=== PATIENT | female | born 1965 | race Caucasian/White ===

== ENCOUNTER 2024-05-08 20:39 | Outpatient (REF) | payer SELFPAY ==
[2024-05-08 21:34] LABS: HCT 46.2 % (36.0-46.0); HGB 14.9 g/dL (11.2-15.7); MCH 29.6 pg (27.0-33.0); MCHC 32.3 % (32.0-36.0); MCV 92 fL (80-95); MPV 11.3 fL (8.0-11.0); Platelet Count 279 10^3/uL (130-400); RBC 5.03 10^6/uL (3.93-5.22); RDW 12.9 % (11.7-14.6); RDW-SD 43.2 fL; WBC 7.04 10^3/uL (4.4-10.8)
[2024-05-08 21:57] LABS: ALT 24 U/L (14-59); AST 17 U/L (15-37); Albumin 3.7 g/dL (3.4-5.0); Alkaline Phosphatase 97 U/L (46-116); Anion Gap 7.6 mmol/L (3-11); BUN 20 mg/dL (7-18); Bilirubin, Total 0.33 mg/dL (0.2-1.0); CO2 28.4 mmol/L (21.0-32.0); Calcium 10.8 mg/dL (8.5-10.1); Chloride 104 mmol/L (98-107); FREE T4 0.98 ng/dL (0.76-1.46); Glucose 91 mg/dL (74-106); Potassium 4.5 mmol/L (3.5-5.1); Sodium 140 mmol/L (136-145); TSH 2.34 uIU/Ml (0.36-3.74); Total Protein 8.3 g/dL (6.4-8.2)
[2024-05-08 22:00] LABS: Hemoglobin A1C 5.8 % (<5.7)
[2024-05-08 22:15] LABS: Calculated LDL 195 mg/dL (<100); Cholesterol 283 mg/dL (<200); HDL Cholesterol 65 mg/dL (40-60); Triglyceride 117 mg/dL (<150)
== END 2024-05-08 20:40 | disposition home or self-care (01) ==
LOC: NCHCN 20:39
PROVIDERS: Visit Provider Family Medicine
DX: E03.9 Hypothyroidism, unspecified (principal); E78.5 Hyperlipidemia, unspecified; R53.83 Other fatigue
CPT/HCPCS: 80053; 80061; 85027; 83036; 84439; 84443

== ENCOUNTER 2024-06-09 15:04 | Outpatient (REF) | payer OTHER, SELFPAY ==
[2024-06-09 17:51] LABS: Vitamin D 25 Total 23.2 ng/mL (30-100)
[2024-06-12 10:57] LABS: Parathyroid Hormone,Intact 38 pg/mL (19-88)
== END 2024-06-09 15:05 | disposition home or self-care (01) ==
LOC: NCHCN 15:04
PROVIDERS: PCP Family Medicine; Visit Provider Family Medicine
DX: M19.09 Primary osteoarthritis, other specified site (principal)
CPT/HCPCS: 82306; 83970

== ENCOUNTER 2024-11-13 15:08 | Outpatient (REF) | payer BC, SELFPAY ==
--- NOTE | 2024-11-13 09:00 | PAPFT_PTH ---
PATIENT: Dilma Daniel [id number] AGE/SX: 59/F ROOM: RE11/13/[address]: Kiara Maldonado : 1965 BED: DIS: 11/13/2024 SPEC #: [id number] RECD: 11/14/24 12:51 STATUS: UMA REGriselda #: [id number] FEDERICO: 11/13/24 09:[address]: Kiara Maldonado DEPT: [facility] Cytology RECD BY: Amber Graves Tissues: 1 - CX/ENDOCX FOR PAP SMEARS Procedures: PAP THIN PREP/[facility] Screening HPV DNA PROBE Comments: [id number] (HPV 16 & 18/45)
[2024-11-13 21:38] LABS: Anion Gap 5.1 mmol/L (3-11); BUN 17 mg/dL (7-18); CO2 29.9 mmol/L (21.0-32.0); CREATININE 1.1 mg/dL (0.55-1.02); Calcium 10.6 mg/dL (8.5-10.1); Calculated LDL 90 mg/dL (<100); Chloride 108 mmol/L (98-107); Cholesterol 174 mg/dL (<200); Estimated GFR 57.52 (mL/min/1.73m2); Glucose 97 mg/dL (74-106); HDL Cholesterol 68 mg/dL (>or=50); Potassium 4.6 mmol/L (3.5-5.1); Sodium 143 mmol/L (136-145); Triglyceride 84 mg/dL (<150)
[2024-11-13 22:54] LABS: Hemoglobin A1C 5.8 % (<5.7)
== END 2024-11-13 15:09 | disposition home or self-care (01) ==
LOC: NCHCN 15:08
PROVIDERS: PCP Family Medicine; Visit Provider Family Medicine
DX: Z11.51 Encounter for screening for human papillomavirus (HPV) (principal); Z01.419 Encounter for gynecological examination (general) (routine) without abnormal findings; R73.03 Prediabetes; I10 Essential (primary) hypertension; E78.5 Hyperlipidemia, unspecified; N76.0 Acute vaginitis
CPT/HCPCS: 80048; 80061; 88142; 83036; 87624

== ENCOUNTER 2024-12-14 01:23 | Outpatient (CLI) | payer BC, SELFPAY ==
--- NOTE | 2024-12-14 08:52 | DI.MAMMO_ITS ---
Exam(s) MAMMO SCREENING EXAM: MAMMO SCREENING CLINICAL HISTORY: SCREENING MAMMO, Z12.31. TECHNIQUE: Bilateral full field digital CC and MLO mammographic images were obtained with 3D tomosyn thesis and utilizing computer aided detection (CAD). COMPARISON: Prior outside mammograms dating back to 2012 were reviewed, most recent being September 11. This patient apparently had benign biopsy left breast 1014 and cyst removal in the right breast in 2019.. FINDINGS: There few small round benign-appearing nodules in the right breast which are probably small cysts. T he size and number of these nodules has progressively decreased from prior mammograms. In the left breast there is an asymmetric density-possible nodule in the retroareolar region approxim ately 1.5 cm in from the nipple and measuring approximately 1.3 x 1.0 cm. Best seen on the MLO view. Possibly within a duct. There are no malignant-appearing microcalcification groups in this region or elsewhere in either [address]. There is no significant architectural distortion nor skin thickening-retraction. IMPRESSION: 1. Benign right breast findings. No radiographic evidence of malignancy in the right breast. 2. Asymmetric density-possible nodule in the retroareolar region of the left breast as described darron craig. Spot compression MLO view and ultrasound recommended. 3. BI-RADS Category 0 - Incomplete: Need additional imaging evaluation Breast Density - Category B - There are scattered areas of fibroglandular density. Breast density Category C or D implies that the patient has dense breast tissue. Dense breast tissue can make it harder to find cancer on a mammogram. Dense breast tissue is also associated with an incr eased risk of breast cancer. This information about the result of the mammogram report was provided to the patient to raise their awareness. Use this report when you speak with the patient about their risks for breast cancer, which includes their family history. At that time, you may recommend additional screening tests (Ultrasoun d or MRI) as these tests may add significant information. A negative radiographic report should not delay biopsy if a dominant or clinically suspicious mass is present. Up to ten percent of cancers are not identified on mammography. A negative report may reinforce clinical impression. Adenosis and dense breasts may obscure an underlying neoplasm. False positive reports average 6 to 10%. Patient will receive a letter notifying them of these results.
== END 2024-12-14 01:43 ==
PROVIDERS: PCP Family Medicine; Visit Provider Family Medicine
DX: Z12.31 Encounter for screening mammogram for malignant neoplasm of breast (principal); R92.323 Mammographic fibroglandular density, bilateral breasts; D24.1 Benign neoplasm of right breast
CPT/HCPCS: 77063; 77067

== ENCOUNTER 2025-01-19 00:22 | Outpatient (CLI) | payer BC, SELFPAY ==
--- NOTE | 2025-01-19 | DI.MAMMO_ITS ---
Exam(s) MG MAMMO SCREEN CALL BACK UNI US BREAST LT COMPLETE EXAM: MG MAMMO SCREEN CALL BACK UNI-LEFT AND COMPLETE LEFT BREAST ULTRASOUND CLINICAL HISTORY: F/U MAMMO, R92.8,LT ASYMMETRIC DENSITY,? NODULE. TECHNIQUE: Unilateral LEFT BREAST spot mammographic images obtained with 3D tomosynthesisand [employer] ng computer aided detection (CAD). . Complete LEFT breast Ultrasound was also performed, including all 4 quadrants, the retroareolar regio n, and the ipsilateral axilla. COMPARISON: Prior outside mammograms were reviewed. Prior outside ultrasound of 2017 was also revie wed. This additional imaging was performed due to findings described on the recent screening mammogr am of 12/14/2024. FINDINGS: DIAGNOSTIC MAMMOGRAM: Additional breast spot mammographic MLO view performed todayrender this area less concerning. We proceeded with ultrasound COMPLETE LEFT BREAST ULTRASOUND: Ultrasound performed today reveals few scattered benign microcyst. However, at the 1 o'clock positio n (2 cm from nipple) there is a 9 x 7 mm nodule which exhibits some internal echoes and is possibly a hemorrhagic microcyst versus other pathology. It exhibits neutral through transmission. No decreas ed through transmission. Adjacent to this is a 2nd finding which is a simple benign 3 millimeter layla rocyst. Scanning of the ipsilateral axilla reveals no significant adenopathy. IMPRESSION: 1. No radiographic evidence of malignancy. 2. Left breast ultrasound reveals a 9 x 7 mm finding at the relatively central 1 o'clock position wh ich is possibly hemorrhagic microcyst but which should undergo repeat ultrasound examination in 3 mon ths time. This was not evident on the prior outside ultrasound examination of 2017 The patient was informed of these findings and recommendations by myself prior to leaving the departm ent today. BI-RADS Category 3 - 3 month - Probably Benign Finding: Recommend follow-up mammography and ultrasoun d in 3 months Breast Density - Category C - The breast are heterogeneously dense, which may obscure small masses. Breast density Category C or D implies that the patient has dense breast tissue. Dense breast tissue can make it harder to find cancer on a mammogram. Dense breast tissue is also associated with an incr eased risk of breast cancer. This information about the result of the mammogram report was provided to the patient to raise their awareness. Use this report when you speak with the patient about their risks for breast cancer, which includes their family history. At that time, you may recommend additional screening tests (Ultrasoun d or MRI) as these tests may add significant information. A negative radiographic report should not delay biopsy if a dominant or clinically suspicious mass is present. Up to ten percent of cancers are not identified on mammography. A negative report may reinforce clinical impression. Adenosis and dense breasts may obscure an underlying neoplasm. False positive reports average 6 to 10%. Patient will receive a letter notifying them of these results.
== END 2025-01-19 00:42 ==
LOC: DI 00:22
PROVIDERS: PCP Family Medicine; Visit Provider Family Medicine
DX: Z12.31 Encounter for screening mammogram for malignant neoplasm of breast (principal); R92.8 Other abnormal and inconclusive findings on diagnostic imaging of breast; R92.333 Mammographic heterogeneous density, bilateral breasts
CPT/HCPCS: 76642; 77063; 77067